=== PATIENT | male | born 1955 | race Caucasian/White ===

== ENCOUNTER 2025-02-05 10:34 | Emergency (ER) | payer BC ==
[~2025-02-05] VITALS: Ht 172.7 cm; Wt 90.7 kg
[2025-02-05 11:19] LABS: PLATELET COUNT (AUTO) 281 K/uL (150-450); RED BLOOD CELL COUNT(AUTO) 5.26 MIL/uL (4.5-6.0); RED CELL DISTRIBUTION WIDTH 12.8 % (11.5-15.0); WHITE BLOOD COUNT (AUTO) 7.5 K/uL (4.3-11.0)
[2025-02-05 11:26] LABS: CALCIUM, SERUM 8.7 mg/dL (8.5-10.1); CREATININE 0.9 mg/dL (0.6-1.3); SODIUM SERUM 140.0 mmol/L (136-145); UREA NITROGEN, BLOOD 13.0 mg/dL (7-18)
[2025-02-05 13:04] VITALS: BP 118/77; TEMP 98.3; O2SAT 95
== END 2025-02-05 13:05 | disposition home or self-care (01) ==
LOC: ER 10:40
DX: M54.2 Cervicalgia (principal); R51.9 Headache, unspecified; I25.10 Atherosclerotic heart disease of native coronary artery without angina pectoris; Z95.5 Presence of coronary angioplasty implant and graft; Z98.1 Arthrodesis status
CPT/HCPCS: 36415; 70450-TC; 80048-TC; 85025-TC